=== PATIENT | female | born 1985 | race Caucasian/White ===

== ENCOUNTER 2016-10-24 22:29 | Emergency (ER) | payer MEDICAID ==
[~2016-10-24] VITALS: Ht 160 cm; Wt 61.0 kg
[~2016-10-24 22:29] MED LIST: COMPLERA PO; FOLI-49 PO; PREN1TAB12 PO
[2016-10-24 22:36] VITALS: Ht 160 cm; Wt 61.0 kg
--- NOTE | 2016-10-25 00:58 | ERD ---
ER Documentation Chief Complaint Date/Time DATE: 10/25/16 TIME: 00:57 Chief Complaint fever/cough/body aches x 2 days HPI This is a 31-year-old female presents to the ER with fever, cough, body aches, headache, feeling her eyes for the last 2 days. Patient denies any nausea or vomiting. She denies any chest pain or shortness of breath. Cough is dry and constant. Her was sick and now is better and her son is sick with same symptoms. Patient did get a flu shot this year. ROS 12 point review of systems was done, all negative except per HPI. Medications Home Meds Active Scripts Naproxen* (Naprosyn*) 500 Mg Tablet, 500 MG PO BID Y for PAIN AND/OR INFLAMMATION, #30 TAB Prov:JENY HICKMAN 10/25/16 Dextromethorphan Hb-Promethazine Hcl (Promethazine DM Syrup) 473 Ml Syrup, 10 ML PO Q6H Y for COUGH, #4 OZ Prov:JENY HICKMAN 10/25/16 Reported Medications Folic Acid* (Folic Acid*) 1 Mg Tablet, PO DAILY 01/18/12 Vit-Iron Fumarate-FA (Prenavite Tablet) 1 Tab Tablet, PO DAILY 01/18/12 [Complera] No Conflict Check, PO DAILY 01/18/12 Allergies Allergies: Coded Allergies: No Known Allergy (Unverified , 10/24/16) PMhx/Soc Hx Miscellaneous Medical Probl: Yes (HIV) Hx Alcohol Use: No Hx Substance Use: No Hx Tobacco Use: No Physical Exam Vitals Vital Signs Date Time Temp Pulse Resp B/P Pulse Ox O2 Delivery O2 Flow Rate FiO2 10/24/16 22:36 99.4 89 20 115/65 98 Physical Exam GENERAL: The patient is well-developed, well-nourished, in no acute distress. NECK: Cervical spine is non tender with no step off. Supple, no nuchal rigidity HEENT: Atraumatic. Pupils equal, round and reactive to light. Extraocular muscles are grossly intact. Conjunctivae pink, no discharge. Bilateral tympanic membranes are clear with no evidence of erythema, effusion or dulling of the light reflex. Tonsilar erythema with no exudates or uvular deviation. Clear rhinorrhea. RESPIRATORY: Clear to auscultation bilaterally. There are no rales, wheezes or rhonchi. HEART: Regular rate and rhythm. No murmurs, clicks, rubs or gallops. EXTREMITIES: No clubbing or cyanosis. Full range of motion. Grossly neurovascularly intact. NEUROLOGIC: Alert and oriented. Cranial nerves II through XII are intact. SKIN: There is no rash. The skin is warm and dry. Procedures/MDM Differential diagnosis includes but is not limited to; Viral URI, allergic rhinitis, bronchitis, pertussis,pneumonia. This is likely viral in etiology. Clinical suspicion for pneumonia is low as patient appears well, is not hypoxic or in any respiratory distress. Additionally, patients physical examination is benign. Plan was discussed with patient they understand and agree. Patient needs to follow up with PCP in 1-2 days or return to ER sooner if symptoms worsen. Departure Diagnosis: Primary Impression: Upper respiratory infection Condition: Stable JENY HICKMAN Oct 25, 2016 00:58
[2016-10-25] MEDS ORDERED: NAPR-260 PO (02:10)
[2016-10-25] MEDS ORDERED: D-ME473S18 PO (02:10)
[2016-10-25 02:34] VITALS: BP 110/65; PULSE 110; RESP 22; TEMP 102
== END 2016-10-25 02:36 | disposition home or self-care (01) ==
LOC: FTE 22:29
DX: J06.9 Acute upper respiratory infection, unspecified (principal)
CPT/HCPCS: 87400; Z7502; 99283